=== PATIENT | female | born 2000 | race Caucasian/White ===

== ENCOUNTER → 2019-06-10 | Outpatient (CLI) | payer BC ==
[~2019-06-10] MED LIST: CEPH250SUA PO; CODACE30 PO; CODACEE120 PO; CRUTCH2 USE; DESV50 PO; L-METHYLFOLATE7.5 M1 PO; METHYLFOLATE; PROZAC20 MG PO; RXCODACET PO
== END | disposition home or self-care (01) ==
LOC: LAB SHORT 13:54 → LAB EV 13:54
DX: J34.89 Other specified disorders of nose and nasal sinuses (principal)
CPT/HCPCS: 87070; 87205

== ENCOUNTER → 2020-12-14 | Outpatient (CLI) | payer BC | END | disposition home or self-care (01) | LOC: LAB 16:00 → LAB SHORT 16:00 | DX: J02.9 Acute pharyngitis, unspecified (principal) | CPT/HCPCS: 87081 ==